=== PATIENT | male | born 1955 | race Caucasian/White ===

== ENCOUNTER → 2020-03-14 | Outpatient (CLI) | payer OTHER ==
[~2020-03-14] MED LIST: FLUT9.9S NAS
[2020-03-14 11:03] LABS: BASOPHILS # (AUTO) 0.03 x10^3/uL (0-0.1); BASOPHILS % (AUTO) 1 % (0-1); EOSINOPHILS # (AUTO) 0.03 x10^3/uL (0-0.4); EOSINOPHILS % (AUTO) 1 % (1-7); LYMPHOCYTES # (AUTO) 1.22 x10^3/uL (1-3.4); LYMPHOCYTES % (AUTO) 21 % (22-44); MD NO; MEAN CORPUSCULAR HEMOGLOBIN 34.9 pg (27.5-34.5); MEAN CORPUSCULAR HGB CONC 34.3 g/dL (33.2-36.2); MEAN CORPUSCULAR VOLUME 101.6 fL (81-97); MEAN PLATELET VOLUME 9.1 fL (7.4-10.4); MONOCYTES # (AUTO) 0.53 x10^3/uL (0.2-0.8); MONOCYTES % (AUTO) 9 % (2-9); NEUTROPHILS % (AUTO) 69 % (42-75); PLATELET COUNT 218 x10^3/uL (130-400); RED BLOOD COUNT 4.75 x10^6/uL (4.38-5.82); RED CELL DISTRIBUTION WIDTH 12.9 % (9.4-14.8)
[2020-03-14 11:03] LABS: MICROSCOPIC NOT IND
[2020-03-14 11:12] LABS: INTERNATIONAL NORMALIZED RATIO 1.01 (0.93-1.1); PROTHROMBIN TIME 10.7 Seconds (9.6-11.5)
[2020-03-14 11:16] LABS: ANION GAP 8 mmol/L (5-15); CALCIUM 9.2 mg/dL (8.5-10.1); CHLORIDE 109 mmol/L (98-107)
== END | disposition home or self-care (01) ==
LOC: STAR 10:13
PROVIDERS: ATTEND Urology
DX: Z01.818 Encounter for other preprocedural examination (principal); C67.9 Malignant neoplasm of bladder, unspecified; R00.1 Bradycardia, unspecified
CPT/HCPCS: 36415; 80048; 81003; 85025; 85610; 85730; 87086; 93005

== ENCOUNTER 2020-03-21 13:24 | Day surgery (SDC) | payer OTHER ==
[~2020-03-21] VITALS: Ht 182.9 cm; Wt 78.8 kg
[2020-03-21] MEDS ORDERED: FENTANYL PF 250 MCG/5ML ONE (13:33)
[2020-03-21] MEDS ORDERED: MIDAZOLAM 1 MG/ML, 2ML ONE (13:33)
[2020-03-21] MEDS ORDERED: CHLORHEXIDINE 15 ML UDC ONE (13:37)
[2020-03-21 13:50] VITALS: BP 143/88
[2020-03-21] MEDS ORDERED: CHLORHEXIDINE 15 ML UDC MM ONE (14:00)
[2020-03-21] MEDS ORDERED: PROPOFOL 10 MG/ML, 20ML ONE (14:39)
[2020-03-21] MEDS ORDERED: GLYCOPYRROLATE 0.2MG/1ML, 5ML ONE (14:39)
[2020-03-21] MEDS ORDERED: ROCURONIUM 10MG/ML,5ML ONE (14:39)
[2020-03-21] MEDS ORDERED: NEOSTIGMINE 1 MG/ML, 10ML ONE (14:39)
[2020-03-21] MEDS ORDERED: CEFAZOLIN 1,000 MG ONE ×2 (14:40)
[2020-03-21] MEDS ORDERED: SUGAMMADEX 200 MG/2 ML IVPush ONE (14:40)
[2020-03-21] MEDS ORDERED: PHENAZOPYRIDINE 200 MG TABLET PO ONE (15:00)
[2020-03-21] MEDS ORDERED: PHENAZOPYRIDINE 200 MG TABLET ONE (15:04)
[2020-03-21] MEDS ORDERED: FENTANYL PF 100 MCG/2ML ONE (15:04)
[2020-03-21] MEDS ORDERED: OXYcodone 5 MG/5 ML ORAL.SOL UDC ONE (15:05)
[2020-03-21] MEDS: FENTANYL PF 100 MCG/2ML IV PRN ×4 (15:13→15:37)
[2020-03-21] MEDS ORDERED: ONDANSETRON 2MG/ML, 2ML IVPush PRN (15:30)
[2020-03-21] MEDS ORDERED: HYDROmorphone 1 MG/ML, 1ML INJ IVPush PRN (15:30)
[2020-03-21] MEDS ORDERED: OXYcodone 5 MG/5 ML ORAL.SOL UDC PO PRN (15:30)
[2020-03-21] MEDS ORDERED: PROMETHAZINE 25 MG/ML, 1ML IVPush PRN (15:30)
[2020-03-21] MEDS ORDERED: hydrALAzine 20 MG/ML, 1ML IV PRN (15:30)
[2020-03-21] MEDS ORDERED: LABETALOL 5MG/ML, 20ML IV PRN (15:30)
== END 2020-03-21 16:15 | disposition home or self-care (01) ==
LOC: OR 13:24
PROVIDERS: ATTEND Urology
DX: C67.5 Malignant neoplasm of bladder neck (principal); N40.1 Benign prostatic hyperplasia with lower urinary tract symptoms; N13.8 Other obstructive and reflux uropathy; R39.14 Feeling of incomplete bladder emptying; N35.919 Unspecified urethral stricture, male, unspecified site; Z79.82 Long term (current) use of aspirin; Z79.891 Long term (current) use of opiate analgesic; Z79.899 Other long term (current) drug therapy; Z90.79 Acquired absence of other genital organ(s); Z80.8 Family history of malignant neoplasm of other organs or systems
CPT/HCPCS: 52234; 88305; J0690; J2250; J2704; J2710; J3010